=== PATIENT | female | born 1985 | race Caucasian/White ===

== ENCOUNTER 2019-09-11 11:54 | Emergency (ER) | payer SELFPAY ==
[~2019-09-11] VITALS: Ht 160 cm; Wt 80.0 kg
[2019-09-11 12:07] VITALS: BP 127/68
== END 2019-09-11 15:02 | disposition left against medical advice (07) ==
LOC: ER 11:54
DX: Z53.21 Procedure and treatment not carried out due to patient leaving prior to being seen by health care provider (principal)